=== PATIENT | female | born 1930 | race Caucasian/White ===

== ENCOUNTER 2017-04-13 12:24 | Outpatient (CLI) | payer MEDICARE, OTHER ==
--- NOTE | 2017-04-13 13:36 | RAD ---
PA AND LATERAL VIEWS CHEST: HISTORY: Preop evaluation. FINDINGS: The heart size is normal. There is elevation of the right hemidiaphragm. The lungs are well expande d without focal areas of consolidation, pneumothorax, or pleural effusions. The aorta is tortuous. There are postop changes of bilateral shoulder arthroplasties. IMPRESSION: No radiographic evidence of acute cardiopulmonary process. POS: OFF
[2017-04-13 13:53] LABS: #Eosinphils 0.2 thou/uL (0.0-0.7); #Lymphocytes 1.9 thou/uL (1.20-3.40); #Monocytes 0.5 thou/uL (0.11-0.59); #Neutrophils 4.6 thou/uL (1.40-6.50); %Basophils 0.6 % (0.0-1.0); %Eosinophils 2.8 % (0.0-10.0); %Lymphocytes 26.4 % (21.0-51.0); %Monocytes 6.8 % (0.0-10.0); %Neutrophils 63.4 % (42.0-75.0); Hemoglobin 14.1 g/dL (12.0-16.0); Mean Corpuscular HGB CONC 33.3 g/dL (32.0-36.0); Mean Corpuscular Hemoglobin 30.2 pg (27.0-31.0); Mean Corpuscular Volume 90.7 fl (81.0-99.0); Mean Platelet Volume 8.8 fL (7.4-10.4); Platelet Count 207 thou/uL (130-400); RBC Distribution Width 11.7 % (11.5-14.5); Red Blood Cell (RBC) Count 4.68 mill/uL (4.20-5.40); White Blood Cell (WBC) Count 7.3 thou/uL (4.8-10.8)
[2017-04-13 13:58] LABS: Prothrombin Time 13.2 SEC (12.0-14.7)
[2017-04-13 14:18] LABS: Anion Gap 12 mmol/L (10-20); BUN (Urea Nitrogen) 29 mg/dL (9.8-20.1); Calc. Creatinine Clearance 0 mL/min (70-130); Calcium 9.6 mg/dL (7.8-10.44); Carbon Dioxide 27 mmol/L (23-31); Chloride 98 mmol/L (98-107); Estimated GFR-MDRD 52; Glucose 98 mg/dL (83-110); Potassium 3.3 mmol/L (3.5-5.1); Sodium 134 mmol/L (136-145)
--- NOTE | 2017-04-15 17:36 | EKG ---
Test Reason : Blood Pressure : / mmHG Vent. Rate : 062 BPM Atrial Rate : 062 BPM P-R Int : 166 ms QRS Dur : 092 ms QT Int : 436 ms P-R-T Axes : -03 -15 016 degrees QTc Int : 442 ms Normal sinus rhythm Voltage criteria for left ventricular hypertrophy Abnormal ECG When compared with ECG of 02-MAR-2016 09:17, No significant change was found Confirmed by DR. Sean ALVAREZ ([id number]) on 04/15/2017 5:36:19 PM Referred By: MIKKI Confirmed By:DR. Sean ALVAREZ
== END 2017-04-13 12:25 | disposition home or self-care (01) ==
LOC: LABBT 12:24
PROVIDERS: ATTEND Orthopaedic Surgery
DX: Z01.818 Encounter for other preprocedural examination (principal); M17.12 Unilateral primary osteoarthritis, left knee
CPT/HCPCS: 71046; 80048; 85025; 85610; 87081; 93005; 93010

== ENCOUNTER 2017-04-21 09:42 | Outpatient (CLI) | payer MEDICARE, OTHER ==
[2017-04-21 12:32] LABS: Bilirubin Negative (Negative); Blood, Urine Trace (Negative); Clarity CLOUDY (Clear); Glucose, Urine (Dipstick) Negative (Negative); Leukocyte Moderate (Negative); Nitrite Positive (Negative); Protein, Urine (Dipstick) Negative (Neg-Trace); Urobilinogen 0.2 mg/dL (0.2-1.0)
[2017-04-21 12:43] LABS: Bacteria/HPF 4+ HPF (None Seen); Hyaline Casts/LPF 0-3 HYALINE CAST LPF (0-3 Hyaline); WBC/HPF 21-50 HPF (0-3)
== END 2017-04-21 09:43 | disposition home or self-care (01) ==
LOC: LABBT 09:42
PROVIDERS: ATTEND Orthopaedic Surgery
DX: Z01.812 Encounter for preprocedural laboratory examination (principal); M17.12 Unilateral primary osteoarthritis, left knee
CPT/HCPCS: 81001; 86850; 86900; 86901

== ENCOUNTER 2017-04-27 07:43 | Day surgery (SDC) | payer MEDICARE, OTHER ==
[2017-04-13 12:47] VITALS: BMI 27.4
[2017-04-27] MEDS ORDERED: Levofloxacin 500 mg/D5W 100 ml Premix Bag ONE (08:39)
[2017-04-27] MEDS ORDERED: Zolpidem Tartrate 5 MG TAB PO PRN ×2 (08:59→10:16)
[2017-04-27] MEDS ORDERED: Ondansetron HCl/PF 4 MG/2 ML Vial IVP PRN ×3 (08:59→12:32)
[2017-04-27] MEDS ORDERED: Promethazine HCl 25 MG/ML VIAL IM PRN ×3 (08:59→12:32)
[2017-04-27] MEDS ORDERED: HYDROcodone/Acetaminophen 10/325 mg Tablet PO PRN ×4 (08:59→10:16)
[2017-04-27] MEDS ORDERED: Fentanyl 100 MCG/2 ML VIAL SLOW IVP PRN ×2 (08:59)
[2017-04-27] MEDS ORDERED: diphenhydrAMINE 25 MG CAP PO PRN (08:59)
[2017-04-27] MEDS ORDERED: Acetaminophen 325 MG TAB PO PRN (08:59)
[2017-04-27] MEDS ORDERED: Tranexamic Acid 1,000 MG in Sodium Chloride 0.9% 100 ML IVPB SCH (09:00)
[2017-04-27] MEDS ORDERED: Lorazepam 0.5 MG TAB PO PRN (09:01)
[2017-04-27] MEDS ORDERED: Midazolam HCl 2 mg/2 ml Vial ONE (09:01)
[2017-04-27] MEDS ORDERED: Morphine 4 MG/ML VIAL ONE (09:01)
[2017-04-27] MEDS ORDERED: traMADol HCl 50 MG TAB PO PRN ×2 (10:16)
[2017-04-27] MEDS ORDERED: Fentanyl 100 MCG/2 ML VIAL IV PRN (10:17)
[2017-04-27] MEDS ORDERED: Promethazine HCl 25 MG/ML VIAL SLOW IVP PRN (12:32)
[2017-04-27] MEDS ORDERED: Fentanyl 250 MCG/5 ML VIAL ONE (12:39)
--- NOTE | 2017-04-27 12:53 | OP ---
DATE OF PROCEDURE: 04/27/2017 PREOPERATIVE DIAGNOSIS: Degenerative joint disease, left knee. POSTOPERATIVE DIAGNOSIS: Degenerative joint disease, left knee. PROCEDURE: Left total knee arthroplasty using [place] Triathlon 4 femur, 4 tibia, 11 mm CSX3 polyeth ylene, and A29 patella. SURGEON: Dr. Jovan Degroot ADMINISTRATOR OF HOME HEALTH: AFSANEH Garrido. PROCEDURE IN DETAIL: After informed consent was obtained in the preoperative holding area. The marquita ent was taken to the operative suite where general anesthesia was induced. Once adequate level of ge neral anesthesia was obtained, the patient was positioned and a well-padded tourniquet was placed trisha und the left proximal thigh. The left lower extremity was then prepped and draped in the usual steri le fashion. Prior to exsanguination, a time out was called and all members of the surgical team agre ed upon site, surgeon, and patient. The extremity was then exsanguinated and the tourniquet was rais ed. A midline longitudinal incision was then made directly over the patella extending two fingerbrea dths above the superior pole of the patella and two fingerbreadths inferior to the inferior patellar pole of the patella. Deeper subcutaneous layers were dissected sharply and local bleeding was contro lled with Bovie electrocautery. A quad tendon longitudinal split was then made sharply and a median parapatellar arthrotomy was carried out both sharp and with Bovie electrocautery, carried down to one fingerbreadth medial to the tibial tubercle. The knee was then placed into flexion and the patella was everted nicely, and a copious fat pad ectomy was performed allowing for greater exposure of the t ibia. The computer-assisted distal femoral fiducial was then placed and pinned firmly, and the dista l femoral cutting guide was pinned firmly into place. The oscillating saw was then used to remove th e appropriate amount of bone. The 4-in-1 cutting block was then placed on the distal femur and the o scillating saw was used to remove the appropriate amount of bone off of the anterior, posterior, and chamfer cuts. After completion of bone cuts, the anterior cruciate ligament was resected sharply and the posterior cruciate ligament retractor was placed and the tibia was subluxed for better exposure. Partial meniscectomies were carried out, and the tibial computer-assisted fiducial was pinned, and the cutting guide was placed. Oscillating saw was then used to remove the bone with Hohmann retracto rs used to take care and protect the collateral ligaments. After the tibial resection was performed, a laminar framing mechanic was placed in between the freshened bone cuts. The knee placed at 90 degrees and further bilateral meniscectomies were carried out, and the curved osteotome and curettage was used t o remove any excess bone spurs in the posterior compartment. Exparel was then injected into the post erior capsule, ramona-articular synovia, pre-patella synovia, and musculature surrounding the capsule. The trial femoral component, tibial baseplate were placed with the appropriate polyethylene trial in sert with an appropriate polyethylene spacer and patellar button. The knee was taken through full ra nge of motion with flexion and extension from 0-90 degrees and patellar broach squarely in the trochl ea without any squinting or subluxation noted. The knee was also stable to varus and valgus stressin g at 0, 15, 45, and 90 degrees of flexion. The drawer was negative. All trial components were then r emoved and the keel punch was used to provide the appropriate defect in the tibia with a mallet. The freshened bone cuts were copiously irrigated with pulsatile lavage of about 1-1/2 liters to remove a ll excess debris. The freshened bone cuts were then dried and with suction and lap sponge. The knee was placed in flexion and retractors were placed to provide access to all bone cuts. Tobramycin imp regnated methyl methacrylate cement was then placed on the freshened bone cuts and implants which wer e malleted firmly into place. Curettage and [place] elevators were used to remove any excess bone ceme nt. The knee was placed into full extension and the patellar button was placed under compression, an d the cement was allowed to cure. Once completed, the components were again taken through full range of motion and copious irrigation of the knee was carried out with another liter of normal saline. A ll components were inspected fully with full range of motion and varus and valgus stressing. There wa s no laxity noted and full extension was observed clinically. Primary closure was accomplished with #2 interrupted Vicryl stitch of the arthrotomy defect. This was oversewn with a #2 running Quill bar bed stitch. The gravitational platelet system was then injected into the arthrotomy prior to closure . The subcutaneous layer was then closed with a running 0 barbed Monocryl stitch and skin closure ac complished with a running subcuticular 3-0 Monocryl barbed Quill stitch and augmented with cement on the skin. Tourniquet was lowered. Good spontaneous return of distal pulses was noted clinically and a sterile dressing was applied to the incision. The procedure was terminated without any complicati ons. The patient was awakened in the operative suite and the tourniquet was removed, and the patient was taken to the recovery room in stable condition.
--- NOTE | 2017-04-27 13:11 | RAD ---
TWO VIEWS LEFT KNEE: Date: 04-27-17 History: Evaluate knee following arthroplasty. FINDINGS: There is post-operative change of the patella posteriorly. There is a tibial and femoral component pr esent with no evidence for hardware failure, fracture, or dislocation. Post-operative gas is seen in the left knee joint. IMPRESSION: Status post left total knee arthroplasty. No acute fracture or dislocation. POS: [facility]
[2017-04-27] MEDS ORDERED: Bupivacaine HCl 0.5%/Epinephrine 1:200,000/PF 30 ml Vial ONE (14:33)
[2017-04-27] MEDS ORDERED: Bupivacaine/Epinephrine 0.25% 30 ML VIAL ONE (14:33)
[2017-04-27] MEDS ORDERED: Ondansetron HCl/PF 4 MG/2 ML Vial ONE (15:00)
[2017-04-27] MEDS ORDERED: Dexamethasone 20 MG/5 ML VIAL ONE (15:00)
[2017-04-27] MEDS ORDERED: PROPOFOL 200 MG/20 ML VIAL ONE (15:00)
[2017-04-27] MEDS ORDERED: PHENYLEPHRINE-NS 100 MCG/ML 10 ML SYRINGE ONE (15:00)
[2017-04-27] MEDS: Aspirin 81 mg Enteric Coated Tablet PO SCH ×2 (15:07→20:14)
[2017-04-27] MEDS: Ferrous Gluconate 324 MG TAB PO SCH ×2 (15:08→20:15)
[2017-04-27] MEDS: Ketorolac Tromethamine 30 MG/ML VIAL IVP SCH ×3 (15:08→23:41)
[2017-04-27] MEDS: Multivitamin W/ Minerals 1 TAB PO SCH (15:08)
[2017-04-27] MEDS: Ketorolac Tromethamine 30 MG/ML VIAL IM SCH ×2 (15:09→20:19)
[2017-04-27] MEDS: Senokot S 8.6-50 MG TAB PO SCH ×2 (15:09→20:14)
[2017-04-27] MEDS: Dextrose 5 %-0.45 % NaCl 1,000 ML IV SCH ×2 (15:09→20:18)
[2017-04-27] MEDS ORDERED: hydrALAZINE 25 MG TAB PO PRN (20:03)
[2017-04-27] MEDS ORDERED: Vancomycin HCl 1.5 GM in Sodium Chloride 0.9% 250 ML 300 ML IVPB SCH (21:00)
--- NOTE | 2017-04-27 21:32 | CON ---
DATE OF CONSULTATION: 04/27/2017 ATTENDING PHYSICIAN: Dr. Jovan Degroot. PRIMARY CARE PHYSICIAN: Dr. Yvonne Velasquez. REASON FOR CONSULTATION: Aid in medical management. HISTORY OF PRESENT ILLNESS: Ms. Rpap is a very pleasant 86-year-old female that has a history of h ypertension and mild anxiety. The patient also has a history of severe osteoarthritis in the left kn ee. The patient had failed outpatient and conservative management of the knee pain and has elected t o have a left total knee replacement. The patient has undergone surgery and is currently postop and has no complaints. She says that she had a little bit of a headache this morning, but she attributes that to not having her usual cup of coffee. Otherwise, no complaints. She denies any chest pain, n o shortness of breath, no PND, no orthopnea, no nausea, no vomiting, etc. PAST MEDICAL HISTORY: Significant for hypertension as well as anxiety. PAST SURGICAL HISTORY: She has had a tonsillectomy in 1939, hysterectomy in 1988, partial colon rese ction secondary to abscess, shoulder surgery, appendectomy, back surgery as well as a colonoscopy. ALLERGIES: PENICILLIN, which causes her throat close off. FAMILY HISTORY: Significant for peptic ulcer disease in her father, liver cancer, and inflammatory b owel syndrome and her mother, rectal cancer in her son. SOCIAL HISTORY: She is . She has been for 8 years. She lives alone. She does not s moke. She rarely drinks. Denies any drug use. MEDICATIONS: Include atenolol 25 mg daily, hydrochlorothiazide 25 mg a day, and lorazepam 0.5 mg 1-2 tablets at bedtime. PHYSICAL EXAMINATION: GENERAL: She is alert and oriented. She appears to be in no acute distress. VITAL SIGNS: The blood pressure was 103/65, heart rate 73, respiratory rate of 18, temperature is 98 .2. HEENT: Her pupils are equal, round, and reactive. Extraocular muscles are intact. Sclerae anicteri c. Throat: No erythema, no exudates. NECK: No adenopathy, no bruits. LUNGS: Clear to auscultation. There is no wheezing, no rales. CARDIOVASCULAR: She has a normal S1, S2. I did not appreciate an S3 or S4. No murmurs, clicks, or rubs. ABDOMEN: Soft, it is nontender, nondistended. Positive for bowel sounds. No rebound, no guarding. EXTREMITIES: There is no clubbing, cyanosis, no edema. NEUROLOGICALLY: The exam is nonfocal. LABORATORY DATA: Lab results were done on 04/13/2017 and these were reviewed. ASSESSMENT AND PLAN: This is a pleasant 86-year-old female that is being admitted for an elective le ft total knee replacement. She has currently undergone surgery and has no significant complaints. S he also has a history of hypertension and her blood pressure is well controlled. With regard to bloo d pressure, I would restart her hydrochlorothiazide as well as her atenolol and this is set to be res tarted tomorrow. We will also add hydralazine only as needed. If she is hospitalized more than a fe w days, then likely should check a chemistry panel to follow up on her potassium given the diuretic. For the left total knee replacement, postop management will be deferred with regard to the knee repla cement to Orthopedic surgery. Thank you for allowing us to participate in the care of this very nice lady and we will be happy to aurelia lyons along with you.
[2017-04-28] MEDS: Bupivacaine 0.5% 50 ML in Sodium Chloride 0.9% 50 ML NERVE BLCK SCH ×3 (01:31→17:06)
[2017-04-28 04:22] LABS: Hemoglobin 11.5 g/dL (12.0-16.0); Mean Corpuscular HGB CONC 33.4 g/dL (32.0-36.0); Mean Corpuscular Hemoglobin 30.4 pg (27.0-31.0); Mean Platelet Volume 9.3 fL (7.4-10.4); Platelet Count 165 thou/uL (130-400); RBC Distribution Width 11.7 % (11.5-14.5); Red Blood Cell (RBC) Count 3.78 mill/uL (4.20-5.40); White Blood Cell (WBC) Count 11.9 thou/uL (4.8-10.8)
[2017-04-28] MEDS: Dextrose 5 %-0.45 % NaCl 1,000 ML IV SCH ×2 (05:47→18:18)
[2017-04-28] MEDS: Ketorolac Tromethamine 30 MG/ML VIAL IM SCH ×3 (05:47→20:44)
[2017-04-28] MEDS: Ketorolac Tromethamine 30 MG/ML VIAL IVP SCH ×4 (05:48→21:23)
[2017-04-28] MEDS: Aspirin 81 mg Enteric Coated Tablet PO SCH ×2 (08:14→20:45)
[2017-04-28] MEDS: Hydrochlorothiazide 25 MG TAB PO SCH (08:14)
[2017-04-28] MEDS: Multivitamin W/ Minerals 1 TAB PO SCH (08:14)
[2017-04-28] MEDS: Ferrous Gluconate 324 MG TAB PO SCH ×2 (08:15→21:18)
[2017-04-28] MEDS: Atenolol 25 MG TAB PO SCH (08:15)
[2017-04-28] MEDS: Senokot S 8.6-50 MG TAB PO SCH ×2 (08:15→21:18)
[2017-04-28] MEDS: traMADol HCl 50 MG TAB PO PRN ×2 (08:42→14:29)
--- NOTE | 2017-04-28 14:19 | PRG ---
DATE OF SERVICE: 04/28/2017 SUBJECTIVE: Danita is an 86-year-old white female postop day #1 left total knee arthroplasty. She is relatively comfortable, doing well. Her block seemed to be working effectively. Also, of note, s he has a preexisting foot drop on the left side which was caused from a stroke some years ago. OBJECTIVE: VITAL SIGNS: Temperature 97.7, pulse 66, blood pressure is 122/62, respiratory rate 20, 94% on room air. GENERAL: She is alert and oriented to person, place, time, and situation. Grossly nonfocal appropri ate with examiner and appears to converse comfortably. EXTREMITIES: Left foot drop is present and chronic. Incision is clean and closed, no erythema, no s trike through. LABORATORY DATA: Hemoglobin and hematocrit are 11.5 and 34.3. ASSESSMENT: 1. An 86-year-old white female postop day #1 left total knee arthroplasty, doing relatively well. P ain controlled. 2. Mild postoperative hemorrhagic anemia. PLAN: Continue current management. Probable discharge tomorrow.
--- NOTE | 2017-04-28 16:40 | PDOC.PN ---
- Subjective Encounter Start Date: 04/28/17 Encounter Start Time: 16:39 Ms. Rapp was seen in follow-up,she was having some knee pain, but it is better with the addition of Ultram - Objective MAR Reviewed: Yes Vital Signs & Weight: Vital Signs (12 hours) Temp Pulse Resp BP BP Pulse Ox 04/28/17 15:43 97.5 F L 62 20 126/72 96 04/28/17 13:16 97.7 F 66 20 132/61 94 L 04/28/17 08:15 67 122/62 04/28/17 08:00 98.6 F 69 16 93 L 04/28/17 07:28 98.6 F 69 16 122/62 93 L Weight Admit Weight 165 lb Weight 165 lb I&O: 04/27/17 04/28/17 04/29/17 06:59 06:59 06:59 Intake Total 500 Balance 500 Result Diagrams: 04/28/17 03:15 Phys Exam - Physical Examination HEENT: PERRLA Respiratory: no wheezing, no rales, no rhonchi, clear to auscultation bilateral Cardiovascular: RRR, no significant murmur Gastrointestinal: soft, non-tender, positive bowel sounds Musculoskeletal: no edema Dx/Plan (1) Hypertension Code(s): I10 - ESSENTIAL (PRIMARY) HYPERTENSION Status: Chronic (2) Status post total left knee replacement Code(s): Z96.652 - PRESENCE OF LEFT ARTIFICIAL KNEE JOINT Status: Acute - Plan * HTN- blood pressure is well controlled * OA of the left knee- she is s/p Left TKR- clinically stable- continue PT/OT.
[2017-04-29] MEDS: Dextrose 5 %-0.45 % NaCl 1,000 ML IV SCH ×2 (02:05→15:39)
[2017-04-29 03:50] VITALS: TEMP 98.1
[2017-04-29 05:10] LABS: Hemoglobin 10.9 g/dL (12.0-16.0); Mean Corpuscular HGB CONC 33.1 g/dL (32.0-36.0); Mean Corpuscular Hemoglobin 30.2 pg (27.0-31.0); Mean Corpuscular Volume 91.2 fl (81.0-99.0); Mean Platelet Volume 9.5 fL (7.4-10.4); Platelet Count 115 thou/uL (130-400); RBC Distribution Width 11.6 % (11.5-14.5); Red Blood Cell (RBC) Count 3.61 mill/uL (4.20-5.40); White Blood Cell (WBC) Count 7.4 thou/uL (4.8-10.8)
[2017-04-29] MEDS: Ketorolac Tromethamine 30 MG/ML VIAL IVP SCH (05:30)
[2017-04-29] MEDS: traMADol HCl 50 MG TAB PO PRN (05:36)
[2017-04-29] MEDS: Ketorolac Tromethamine 30 MG/ML VIAL IM SCH ×2 (06:19→15:40)
[2017-04-29] MEDS: Ferrous Gluconate 324 MG TAB PO SCH (08:25)
[2017-04-29] MEDS: Senokot S 8.6-50 MG TAB PO SCH (08:26)
[2017-04-29] MEDS: Hydrochlorothiazide 25 MG TAB PO SCH (08:26)
[2017-04-29] MEDS: Atenolol 25 MG TAB PO SCH (08:26)
[2017-04-29] MEDS: Multivitamin W/ Minerals 1 TAB PO SCH (08:26)
[2017-04-29] MEDS: Aspirin 81 mg Enteric Coated Tablet PO SCH (08:26)
[2017-04-29 08:39] VITALS: BP 115/66
== END 2017-04-29 13:00 | disposition home or self-care (01) ==
LOC: SDC 07:43 → SJJU 15:37 → SDC 04-29 13:00
PROVIDERS: ATTEND Orthopaedic Surgery
PROC: 0SRD0J9 Replacement of Left Knee Joint with Synthetic Substitute, Cemented, Open Approach (ICD-10-PCS; principal; 2017-04-27)
DX: M17.12 Unilateral primary osteoarthritis, left knee (principal); I10 Essential (primary) hypertension; D50.0 Iron deficiency anemia secondary to blood loss (chronic); F41.9 Anxiety disorder, unspecified; Z88.0 Allergy status to penicillin; Z88.8 Allergy status to other drugs, medicaments and biological substances; Z79.899 Other long term (current) drug therapy; Z98.890 Other specified postprocedural states
CPT/HCPCS: 27447; 73560; 85027; 96374; 97110 ×2; 97116 ×3; 97139 ×2; 97150; 97530; C1713; C1776; G8978; G8979; 36415; J0670; J1100; J1885; J1956; J2250; J2270; J2405; J2704; J3010; J3370; J3490; J7050

== ENCOUNTER 2017-10-13 10:44 | Outpatient (CLI) | payer MEDICARE, OTHER ==
--- NOTE | 2017-10-13 13:29 | MRI ---
LEFT KNEE MRI WITHOUT IV CONTRAST: Date: 10/13/17 HISTORY: 86-year-old female with history of acute pain left knee. Status post total left knee replacement in M arch 2018. FINDINGS: There is very severe metallic susceptibility artifact from the dense metal associated with total knee replacement. This extensive metal artifact also results in lack of fat saturation. There is no evide nce for abnormal fluid collection. The cruciate ligaments are very poorly defined. Collateral ligament complexes additionally are very p oorly defined. IMPRESSION: Very severely limited study because of the very dense metal susceptibility artifact from total knee r eplacement. No significant abnormal fluid collection or mass. POS: [facility]
== END 2017-10-13 10:45 | disposition home or self-care (01) ==
LOC: SCSMRI 10:44
PROVIDERS: ATTEND Orthopaedic Surgery
DX: M25.562 Pain in left knee (principal); Z96.652 Presence of left artificial knee joint

== ENCOUNTER 2018-11-09 10:49 | Outpatient (CLI) | payer MEDICARE, OTHER ==
[2018-11-09 15:22] LABS: #Lymphocytes 2.1 thou/uL (1.20-3.40); #Monocytes 0.8 thou/uL (0.11-0.59); #Neutrophils 9.4 thou/uL (1.40-6.50); %Basophils 0.3 % (0.0-1.0); %Eosinophils 0.2 % (0.0-10.0); %Lymphocytes 16.9 % (21.0-51.0); %Monocytes 6.2 % (0.0-10.0); %Neutrophils 76.3 % (42.0-75.0); Hemoglobin 14.8 g/dL (12.0-16.0); Mean Corpuscular HGB CONC 33.6 g/dL (32.0-36.0); Mean Corpuscular Hemoglobin 30.6 pg (27.0-31.0); Mean Platelet Volume 9.1 fL (7.4-10.4); Platelet Count 248 thou/uL (130-400); RBC Distribution Width 12.2 % (11.5-14.5); Red Blood Cell (RBC) Count 4.84 mill/uL (4.20-5.40); White Blood Cell (WBC) Count 12.3 thou/uL (4.8-10.8)
[2018-11-09 15:27] LABS: Prothrombin Time 12.9 SEC (12.0-14.7)
[2018-11-09 16:02] LABS: Bacteria/HPF 2+ HPF (None Seen); Bilirubin Negative (Negative); Blood, Urine Trace (Negative); Clarity Clear (Clear); Glucose, Urine (Dipstick) Normal (Negative); Leukocyte Negative Leu/uL (Negative); Nitrite 2+ (Negative); Protein, Urine (Dipstick) Negative (Neg-Trace); RBC/HPF 0-3 HPF (0-3); Urobilinogen Normal mg/dL (Less than 2); WBC/HPF 0-3 HPF (0-3)
[2018-11-09 16:03] LABS: Anion Gap 13 mmol/L (10-20); BUN (Urea Nitrogen) 30 mg/dL (9.8-20.1); Calc. Creatinine Clearance 0 mL/min (70-130); Calcium 9.3 mg/dL (7.8-10.44); Chloride 94 mmol/L (98-107); Estimated GFR-MDRD 51; Glucose 88 mg/dL (83-110); Potassium 3.4 mmol/L (3.5-5.1); Sodium 130 mmol/L (136-145)
[2018-11-09 16:20] LABS: Carbon Dioxide 25 mmol/L (23-31)
--- NOTE | 2018-11-10 20:15 | EKG ---
Test Reason : Blood Pressure : / mmHG Vent. Rate : 083 BPM Atrial Rate : 083 BPM P-R Int : 150 ms QRS Dur : 090 ms QT Int : 390 ms P-R-T Axes : 054 006 071 degrees QTc Int : 458 ms Normal sinus rhythm Cannot rule out Anterior infarct , age undetermined Abnormal ECG When compared with ECG of 13-APR-2017 13:12, No significant change was found Confirmed by JOSE GRIFFIN, . SPayton ([id number]) on 11/10/2018 8:14:55 PM Referred By: MIKKI Confirmed By:DR. Gordon GARCIA MD
== END 2018-11-09 10:50 | disposition home or self-care (01) ==
LOC: LABBT 10:49
PROVIDERS: ATTEND Orthopaedic Surgery
DX: Z01.818 Encounter for other preprocedural examination (principal); S83.522A Sprain of posterior cruciate ligament of left knee, initial encounter
CPT/HCPCS: 80048; 81001; 85025; 85610; 87081; 93005; 93010

== ENCOUNTER 2018-11-09 14:30 | Inpatient (IN) | payer MEDICARE, OTHER ==
[2018-11-09 14:05] VITALS: BMI 27.4
[2018-11-18] MEDS ORDERED: Levofloxacin 500 mg/D5W 100 ml Premix Bag ONE (06:54)
[2018-11-18] MEDS ORDERED: Tranexamic Acid 1,000 MG/10 ML VIAL ONE (06:54)
[2018-11-18] MEDS ORDERED: Sodium Chloride 0.9% 100 ML ONE (06:55)
[2018-11-18] MEDS ORDERED: Fentanyl 100 MCG/2 ML VIAL ONE ×3 (08:26→11:33)
[2018-11-18] MEDS ORDERED: Midazolam HCl 2 mg/2 ml Vial ONE (08:26)
[2018-11-18] MEDS ORDERED: Fentanyl 100 MCG/2 ML VIAL SLOW IVP PRN ×3 (08:28→11:20)
[2018-11-18] MEDS ORDERED: Ondansetron PF 4 MG/2 ML Vial IVP PRN ×2 (08:28→11:19)
[2018-11-18] MEDS ORDERED: HYDROcodone/Acetaminophen 10/325 mg Tablet PO PRN ×3 (08:28→11:19)
[2018-11-18] MEDS ORDERED: Zolpidem Tartrate 5 MG TAB PO PRN ×2 (08:28→11:19)
[2018-11-18] MEDS ORDERED: Acetaminophen 325 MG TAB PO PRN (08:28)
[2018-11-18] MEDS ORDERED: Promethazine HCl 25 MG/ML VIAL IM PRN ×2 (08:28→11:19)
[2018-11-18] MEDS ORDERED: diphenhydrAMINE 25 MG CAP PO PRN (08:28)
[2018-11-18] MEDS ORDERED: Lorazepam 1 MG TAB PO PRN (08:30)
--- NOTE | 2018-11-18 11:10 | RAD ---
XR Knee Lt 2 View History: Total knee postop Comparison: Knee radiograph 2018 Findings: Satisfactory appearance left total knee arthroplasty with new long femoral stem. Expected p ostoperative gas and edema. Tibial component is intact. Impression: Satisfactory postoperative appearance.
[2018-11-18] MEDS: Ketorolac Tromethamine 30 MG/ML VIAL IVP SCH ×3 (13:39→23:36)
[2018-11-18] MEDS: Atenolol 25 MG TAB PO SCH (13:39)
[2018-11-18] MEDS: Hydrochlorothiazide 25 MG TAB PO SCH (13:39)
[2018-11-18] MEDS: Sodium Chloride 0.9% 1,000 ML IV SCH ×2 (13:39→17:22)
--- NOTE | 2018-11-18 13:42 | OP ---
DATE OF PROCEDURE: 11/18/2018 PREOPERATIVE DIAGNOSIS: Failed left total knee. POSTOPERATIVE DIAGNOSIS: Failed left total knee. PROCEDURE PERFORMED: Left revision total knee arthroplasty using a [place] triathlon size 11 tibia, size 4 femur with a 15 mm buildup medially and a 10 mm buildup laterally on the distal end. No posterior augments. 18 mm x 100 stem was used. SOLAR PROJECT COORDINATION SPECIALIST: Samir Dickinson PA-C. BLOOD LOSS: Minimal. SPECIMENS: None. DRAINS: None. COMPLICATIONS: None. NARRATIVE REPORT: The patient was taken to the operating room, where general anesthesia was induced. Left leg was prepped and draped in sterile fashion. After exsanguination, tourniquet was inflated to 300 mmHg. I made a longitudinal incision. Dissection was carried down through the joint capsule. Synovectomy was performed. The femur was exposed. The tibia was exposed. I removed the tibia with a curved osteotome. I removed the femur with an oscillating saw. I prepared the femur using the trial cutting guide. Flexion gap was snug at 11, however, had a build up the extension gap quite a bit and refusing the trial described above. Trials have given full stability in flexion and extension, full extension without hyperextension. Trials were removed and irrigation performed. I assembled the trials in the back table. Thorough irrigation and hemostasis were obtained. I then cemented the permanent implants into place without difficulty. Irrigation was performed. The capsule was repaired with #2 Vicryl and #2 Quill. Subcu closed with 0 Quill. Skin was closed with 2-0 Quill, and sterile glue was applied. There were no complications. Job ID: [id number]
[2018-11-18] MEDS ORDERED: hydrALAZINE 20 MG/ML VIAL SLOW IVP PRN (17:17)
--- NOTE | 2018-11-18 17:43 | CON ---
DATE OF CONSULTATION: 11/18/2018 PRIMARY CARE PROVIDER: Yvonne Velasquez MD CHIEF COMPLAINT: Management of medical comorbidities. HISTORY OF PRESENT ILLNESS: Ms. Rapp is a pleasant 88-year-old lady, who was seen at [facility] on November 18, 2018. She underwent left revision total knee arthroplasty earlier today. Hospitalist Service has been consulted for management of medical comorbidities. Ms. Rapp denies any chest pain or shortness of breath. She denies any fevers or chills. She denies any nausea or vomiting. She reports that pain at the surgical site is controlled with medications. REVIEW OF SYSTEMS: All systems were reviewed and found to be negative except for the pertinent positives mentioned above. PAST MEDICAL HISTORY: Hypertension and anxiety. PAST SURGICAL HISTORY: Tonsillectomy, hysterectomy, partial colon resection secondary to abscess, shoulder surgery, appendectomy, back surgery, and colonoscopy. ALLERGIES: PENICILLIN. FAMILY HISTORY: Peptic ulcer disease in her father. Liver cancer and inflammatory bowel syndrome in her mother. Rectal cancer in her son. SOCIAL HISTORY: The patient denies tobacco use, alcohol use, or recreational drug use. HOME MEDICATIONS: Aspirin 81 mg daily, atenolol 25 mg daily, hydrochlorothiazide 25 mg daily, and lorazepam p.r.n. PHYSICAL EXAMINATION: GENERAL: on examination, Ms. Rapp is awake and alert, not in acute distress. VITAL SIGNS: She is afebrile. Blood pressure is 104/64, pulse 80, respiratory rate 14, and oxygen saturation 96% on room air. EYES: No scleral icterus. No conjunctival pallor. ENT: Moist mucosal membranes. No oropharyngeal erythema or exudates. NECK: Supple and nontender. Trachea is midline. RESPIRATORY: Accessory muscles of breathing are not active. Chest wall movements are symmetric bilaterally. Lungs are clear to auscultation without wheeze, rhonchi, or crepitations. CARDIOVASCULAR: S1 and S2 are heard, regular. Peripheral pulses palpable. No carotid bruit. No pericardial rub. ABDOMEN: Soft and nontender. Bowel sounds heard. NEUROLOGIC: Cranial nerves 2 through 12 are intact. MUSCULOSKELETAL: Status post left knee surgery. SKIN: No rashes or subcutaneous nodules. LYMPHATIC: No cervical lymphadenopathy. PSYCHIATRIC: Normal mood. Normal affect. The patient is oriented to person, place, and time. LABORATORY DATA: Ms. Rapp' labs and investigations were reviewed. On November 09, she had mild leukocytosis with 12,300 white cells, normal hemoglobin, and normal platelet count. Sodium was 130, potassium 3.4, and creatinine 1.02. ASSESSMENT AND PLAN: Ms. Rapp is a pleasant 88-year-old lady, who was seen at [facility] on November 18, 2018. Her problem list includes: 1. Hypertension: Resume atenolol during the perioperative period. Continue hydrochlorothiazide. Monitor vital signs and titrate antihypertensives as needed. 2. Electrolyte abnormalities: Check Chem-7 in the morning. 3. Arthritis: Status post left knee revision arthroplasty. Deep venous thrombosis prophylaxis and pain management per Orthopedic Surgery Service. Many thanks for allowing me to participate in your patient's care. Please feel free to contact me with any questions or concerns. LEVEL OF RISK: Moderate. LEVEL OF COMPLEXITY: Moderate. Job ID: [id number]
[2018-11-18] MEDS ORDERED: Vancomycin HCl 1.5 GM in Sodium Chloride 0.9% 250 ML 300 ML IVPB SCH (20:00)
[2018-11-18] MEDS: Aspirin 81 mg Enteric Coated Tablet PO SCH (20:48)
[2018-11-18] MEDS ORDERED: Aspirin 81 mg Enteric Coated Tablet PO SCH (21:00)
[2018-11-18] MEDS: traMADol HCl 50 MG TAB PO PRN (22:30)
[2018-11-19] MEDS: Sodium Chloride 0.9% 1,000 ML IV SCH ×2 (05:02→15:02)
[2018-11-19] MEDS: Ketorolac Tromethamine 30 MG/ML VIAL IVP SCH ×3 (05:02→18:51)
[2018-11-19 05:06] LABS: Hemoglobin 11.3 g/dL (12.0-16.0); Mean Corpuscular HGB CONC 33.1 g/dL (32.0-36.0); Mean Corpuscular Hemoglobin 30.7 pg (27.0-31.0); Mean Corpuscular Volume 92.8 fL (78.0-98.0); Mean Platelet Volume 8.9 fL (7.4-10.4); Platelet Count 157 thou/uL (130-400); RBC Distribution Width 12.1 % (11.5-14.5); Red Blood Cell (RBC) Count 3.67 mill/uL (4.20-5.40); White Blood Cell (WBC) Count 14.5 thou/uL (4.8-10.8)
[2018-11-19 05:26] LABS: Anion Gap 14 mmol/L (10-20); BUN (Urea Nitrogen) 28 mg/dL (9.8-20.1); Calc. Creatinine Clearance 46 mL/min (70-130); Calcium 8.5 mg/dL (7.8-10.44); Carbon Dioxide 27 mmol/L (23-31); Chloride 97 mmol/L (98-107); Estimated GFR-MDRD 51; Glucose 113 mg/dL (83-110); Potassium 3.7 mmol/L (3.5-5.1); Sodium 134 mmol/L (136-145)
[2018-11-19] MEDS: Atenolol 25 MG TAB PO SCH (08:51)
[2018-11-19] MEDS: Hydrochlorothiazide 25 MG TAB PO SCH (08:52)
[2018-11-19] MEDS: Multivitamin W/ Minerals 1 TAB PO SCH (08:52)
[2018-11-19] MEDS: Senokot S 8.6-50 MG TAB PO SCH ×2 (08:52→21:04)
[2018-11-19] MEDS: Aspirin 81 mg Enteric Coated Tablet PO SCH ×2 (08:53→21:04)
[2018-11-19] MEDS: Ferrous Gluconate 324 MG TAB PO SCH ×2 (08:55→21:04)
[2018-11-19] MEDS ORDERED: FLU VACC TS2019-20(65YR UP)/PF 180 MCG/0.5 ML SYRINGE IM ONE (09:00)
[2018-11-19] MEDS: Ropivacaine HCl/PF 250 ML in Premix Bag 1 BAG NERVE BLCK SCH (12:52)
--- NOTE | 2018-11-19 13:15 | PRG ---
DATE OF SERVICE: 11/19/2018 SUBJECTIVE: Danita is an 88-year-old female, she is postop day 1 from a left total knee arthroplasty revision. She is doing very well. She is comfortable and essentially has no complaints. OBJECTIVE: VITAL SIGNS: Temperature 97.9, pulse 61, respiratory rate 16 and unlabored, blood pressure is 124/71. GENERAL: She is alert and oriented to person, place, time, and situation. Responsive and appropriate with examiner. Grossly nonfocal. LABORATORY DATA: Hemoglobin and hematocrit are 11.3 and 34.1. IMPRESSION: An 88-year-old female, postop day 1, left total knee arthroplasty revision, doing well. PLAN: Continue current care. Probable discharge home Wednesday. Job ID: [id number]
--- NOTE | 2018-11-19 14:02 | PDOC.HOSPP ---
- Subjective Encounter Date: 11/19/18 Encounter Time: 12:00 Subjective: Pt seen for followup re; hyponatremia. feels well, no complaints. - Objective Vital Signs & Weight: Vital Signs (12 hours) Temp Pulse Resp BP Pulse Ox 11/19/18 12:14 97.9 F 61 16 124/71 95 11/19/18 07:19 97.9 F 64 18 125/69 99 11/19/18 04:00 97.9 F 64 18 135/52 L 98 Weight Weight 165 lb I&O: 11/18/18 11/19/18 11/20/18 06:59 06:59 06:59 Intake Total 800 1360 Output Total 300 1275 Balance 500 85 Result Diagrams: 11/19/18 04:22 11/19/18 04:22 Additional Labs: labs and MARs reviewed by ks Hospitalist ROS - Review of Systems Cardiovascular: denies: chest pain, palpitations, orthopnea, paroxysmal noc. dyspnea, edema, light headedness Gastrointestinal: denies: nausea, vomiting, abdominal pain, diarrhea, constipation, melena, hematochezia - Medication Medications: Active Medications Generic Name Dose Route Start Last Admin Trade Name Freq PRN Reason Stop Dose Admin Aspirin 81 mg 11/18/18 21:00 11/19/18 08:53 Ecotrin PO 81 mg BID DORA Administration Atenolol 25 mg 11/18/18 09:00 11/19/18 08:51 Tenormin PO 25 mg QAM DORA Administration Ferrous Gluconate 324 mg 11/19/18 09:00 11/19/18 08:55 Fergon PO Not Given BID DORA Hydrochlorothiazide 25 mg 11/18/18 09:00 11/19/18 08:52 Hydrochlorothiazide PO 25 mg QAM DORA Administration Sodium Chloride 1,000 mls @ 100 mls/hr 11/18/18 08:30 11/19/18 05:02 Normal Saline 0.9% IV Not Given .Q10H DORA Ropivacaine 250 ml/ Device 250 mls @ 10 mls/hr 11/18/18 11:19 11/19/18 12:52 NERVE BLCK 250 mls INF DORA Administration Iron/Minerals/Multivitamins 1 tab 11/19/18 09:00 11/19/18 08:52 Theragran M PO 1 tab DAILY DORA Administration Ketorolac Tromethamine 15 mg 11/18/18 12:00 11/19/18 12:39 Toradol IVP 11/20/18 06:01 15 mg Q6HR DORA Administration Senna/Docusate Sodium 2 tab 11/19/18 09:00 11/19/18 08:52 Senokot S PO 2 tab BID DORA Administration Tramadol HCl 100 mg 11/18/18 11:19 11/18/18 22:30 Ultram PO 100 mg Q6H PRN Administration Moderate Pain 4-6 - Exam General Appearance: NAD Eye: anicteric sclera ENT: moist mucosa Neck: supple Heart: RRR Respiratory: CTAB Gastrointestinal: soft, non-tender Psychiatric: normal affect, normal behavior Hosp A/P (1) Hyponatremia Code(s): E87.1 - HYPO-OSMOLALITY AND HYPONATREMIA Status: Acute (2) Hypertension Code(s): I10 - ESSENTIAL (PRIMARY) HYPERTENSION Status: Chronic - Plan PT/OT, out of bed/ambulate Hyponatremia mild, likely asymptomatic. HTN controlled.
[2018-11-19] MEDS: traMADol HCl 50 MG TAB PO PRN (15:55)
[2018-11-19] MEDS: HYDROcodone/Acetaminophen 10/325 mg Tablet PO PRN (21:14)
[2018-11-20] MEDS: Sodium Chloride 0.9% 1,000 ML IV SCH ×3 (00:58→19:31)
[2018-11-20] MEDS: Ketorolac Tromethamine 30 MG/ML VIAL IVP SCH ×2 (00:58→05:26)
[2018-11-20] MEDS: HYDROcodone/Acetaminophen 10/325 mg Tablet PO PRN (03:25)
[2018-11-20] MEDS: traMADol HCl 50 MG TAB PO PRN ×3 (04:33→23:48)
[2018-11-20 06:30] LABS: Mean Corpuscular HGB CONC 33.9 g/dL (32.0-36.0); Mean Corpuscular Hemoglobin 31.3 pg (27.0-31.0); Mean Corpuscular Volume 92.2 fL (78.0-98.0); Platelet Count 119 thou/uL (130-400); RBC Distribution Width 12.2 % (11.5-14.5); Red Blood Cell (RBC) Count 3.84 mill/uL (4.20-5.40); White Blood Cell (WBC) Count 9.2 thou/uL (4.8-10.8)
[2018-11-20] MEDS: Senokot S 8.6-50 MG TAB PO SCH ×2 (09:27→20:11)
[2018-11-20] MEDS: Hydrochlorothiazide 25 MG TAB PO SCH ×2 (09:27→09:31)
[2018-11-20] MEDS: Atenolol 25 MG TAB PO SCH (09:27)
[2018-11-20] MEDS: Aspirin 81 mg Enteric Coated Tablet PO SCH ×2 (09:27→20:11)
[2018-11-20] MEDS: Multivitamin W/ Minerals 1 TAB PO SCH (09:27)
[2018-11-20] MEDS: Ferrous Gluconate 324 MG TAB PO SCH ×2 (09:28→20:11)
--- NOTE | 2018-11-20 11:32 | PRG ---
DATE OF SERVICE: 11/20/2018 SUBJECTIVE: Danita is an 88-year-old female postop day 2 from a revision left total knee arthroplasty. She is doing well, comfortable this morning. OBJECTIVE: VITAL SIGNS: Temperature 97.6, pulse 67, respiratory rate 18, blood pressure 107/62 GENERAL: She is alert and oriented to person, place, time, situation, responsive, appropriate and grossly nonfocal. LABORATORY DATA: Hemoglobin and hematocrit are 12 and 35. IMPRESSION: An 88-year-old female, postop day 2, revision left total knee arthroplasty. PLAN: Consult has been placed for now for a swing bed placement. We will recheck tomorrow. Job ID: [id number]
[2018-11-20] MEDS: Ropivacaine HCl/PF 250 ML in Premix Bag 1 BAG NERVE BLCK SCH (14:36)
--- NOTE | 2018-11-20 18:08 | PDOC.EVN ---
Event Note - Event Note Event Note: Pt seen in followup. Denies any complaints. Feels well. VSS. S1, S2, RRR. Lungs CTA. A/P: Pt doing well from medical standpoint. Will signoff. Please reconsult if needed.
[2018-11-21] MEDS: Sodium Chloride 0.9% 1,000 ML IV SCH (05:38)
[2018-11-21] MEDS: Aspirin 81 mg Enteric Coated Tablet PO SCH (08:10)
[2018-11-21] MEDS: Multivitamin W/ Minerals 1 TAB PO SCH (08:10)
[2018-11-21] MEDS: Atenolol 25 MG TAB PO SCH (08:10)
[2018-11-21] MEDS: Ferrous Gluconate 324 MG TAB PO SCH (08:11)
[2018-11-21] MEDS: Hydrochlorothiazide 25 MG TAB PO SCH (08:11)
[2018-11-21] MEDS: Senokot S 8.6-50 MG TAB PO SCH (08:11)
[2018-11-21] MEDS: traMADol HCl 50 MG TAB PO PRN (11:02)
[2018-11-21 11:13] VITALS: TEMP 97.8
[2018-11-21 16:50] VITALS: BP 107/65
== END 2018-11-21 17:27 | DRG 467 ==
LOC: SURG A 11-18 06:01 → SJJU 11-18 12:40
PROVIDERS: ADMIT Orthopaedic Surgery; ATTEND Orthopaedic Surgery
PROC: 0SPD0JZ Removal of Synthetic Substitute from Left Knee Joint, Open Approach (ICD-10-PCS; principal; 2018-11-18)
PROC: 0SRD0J9 Replacement of Left Knee Joint with Synthetic Substitute, Cemented, Open Approach (ICD-10-PCS; 2018-11-18)
DX: T84.093A Other mechanical complication of internal left knee prosthesis, initial encounter (principal); E87.1 Hypo-osmolality and hyponatremia; I10 Essential (primary) hypertension; F41.9 Anxiety disorder, unspecified; Y83.8 Other surgical procedures as the cause of abnormal reaction of the patient, or of later complication, without mention of misadventure at the time of the procedure; Z88.8 Allergy status to other drugs, medicaments and biological substances; Z88.0 Allergy status to penicillin; Z90.710 Acquired absence of both cervix and uterus; Z90.49 Acquired absence of other specified parts of digestive tract; M17.11 Unilateral primary osteoarthritis, right knee
CPT/HCPCS: 36415; 80048; 85027; 90471; 90662; G0008; J1885; J1956; J2250; J2795; J3010; J3370; J3490; J7050

== ENCOUNTER 2018-12-11 08:42 | Inpatient (IN) | payer MEDICARE, OTHER ==
[2018-12-11] MEDS ORDERED: 1/2 NS w/KCL 20 mEq 1,000 ML IV SCH (11:45)
[2018-12-11 12:32] LABS: #Lymphocytes 1.3 thou/uL (1.20-3.40); #Neutrophils 9.4 thou/uL (1.40-6.50); %Basophils 0.3 % (0.0-1.0); %Eosinophils 0.2 % (0.0-10.0); %Lymphocytes 11.4 % (21.0-51.0); %Monocytes 8.2 % (0.0-10.0); %Neutrophils 79.9 % (42.0-75.0); Hemoglobin 12.7 g/dL (12.0-16.0); Mean Corpuscular Hemoglobin 30.1 pg (27.0-31.0); Mean Corpuscular Volume 91.4 fL (78.0-98.0); Mean Platelet Volume 8.6 fL (7.4-10.4); Platelet Count 229 thou/uL (130-400); RBC Distribution Width 12.3 % (11.5-14.5); Red Blood Cell (RBC) Count 4.21 mill/uL (4.20-5.40); White Blood Cell (WBC) Count 11.7 thou/uL (4.8-10.8)
[2018-12-11 12:50] LABS: Anion Gap 14 mmol/L (10-20); BUN (Urea Nitrogen) 13 mg/dL (9.8-20.1); Calc. Creatinine Clearance 0 mL/min (70-130); Calcium 8.7 mg/dL (7.8-10.44); Carbon Dioxide 27 mmol/L (23-31); Chloride 99 mmol/L (98-107); Estimated GFR-MDRD 56; Glucose 132 mg/dL (83-110); Potassium 3.9 mmol/L (3.5-5.1); Sodium 136 mmol/L (136-145)
[2018-12-11] MEDS ORDERED: Morphine 4 MG/ML VIAL SLOW IVP PRN (13:48)
[2018-12-11] MEDS ORDERED: Ketorolac Tromethamine 30 MG/ML VIAL IVP PRN (13:48)
[2018-12-11] MEDS ORDERED: Morphine 2 MG/ML SYRINGE SLOW IVP PRN (13:48)
[2018-12-11] MEDS ORDERED: Acetaminophen 1,000 MG in Premix Bag 1 BAG IVPB PRN (13:48)
--- NOTE | 2018-12-11 14:11 | RAD ---
XR Abdomen 2 View/1 View Cxr History: Small bowel obstruction. Comparison: Abdomen radiograph same day Findings: Enteric tube is in place with the side port at the GE junction. Lungs are relatively clear. No pneumothorax. Continued to be mildly distended loops of small bowel in the abdomen. Large volume stool in the rectal vault. Impression: 1. Enteric tube side port near the GE junction. Recommend advancing 3-4 similar. 2. Large moderate stool within the rectum. Disimpaction may be beneficial. 3. Continued mild gaseous dilatation of small bowel.
--- NOTE | 2018-12-11 14:44 | CON ---
DATE OF CONSULTATION: HISTORY OF PRESENT ILLNESS: Danita Rapp is an 88-year-old female, transferred from [place] because of nausea and vomiting. She had undergone on 04/27/2017, left knee replacement by Dr. Degroot and then on 11/18/2018, this was revised by Dr. Degroot and she has been at rehab convalescing. The patient is status post Dr. Carbajal, lumbar surgery. The patient began experiencing nausea and vomiting over the last 24 hours. She has never experienced this before. She has not had a bowel movement in 24 hours. Her physical therapy is interrupted by the symptoms. She reports she is having abdominal discomfort. Abdominal x-ray was single view was obtained in [place] and an NG tube placed and she was transferred to this facility. NG tube was at 50 cm and has a feculent appearing output about 400 or 500. The patient states she is not having much pain at this time. The patient has had a past total abdominal hysterectomy, bilateral salpingo-oophorectomy, appendectomy, and has had a colon resection for diverticulitis. She did not require colostomy. She describes a diverticular abscess, but did not require colostomy. She has had a colonoscopy in the last five or six years, she cannot remember when. ALLERGIES: PENICILLIN, CODEINE, AND LOSARTAN. SOCIAL HISTORY: Tobacco, none. Alcohol, rarely. HOME MEDICATIONS: 1. Tramadol. 2. Lorazepam. 3. Colace. 4. Atenolol. 5. Aspirin. PAST MEDICAL HISTORY: Hypertension. She has never had any cardiopulmonary problems. She has never had a reason to have cardiac stress test. REVIEW OF SYSTEMS: Ten-point noncontributory. PHYSICAL EXAMINATION: VITAL SIGNS: Blood pressure 120/72, respiratory rate 18, and heart rate 72. HEAD, EARS, EYES, NOSE, AND THROAT: Unremarkable. LUNGS: Clear to auscultation. CARDIAC: Regular rate and rhythm without murmur or gallop. ABDOMEN: Soft, nontympanitic, nondistended, and nontender. Midline scar consistent with colon resection. Right lower quadrant scar consistent with appendectomy. EXTREMITIES: Unremarkable. No ankle edema. LABORATORY DATA: White count 11 and hemoglobin 12.7. Sodium 136, potassium 3.9, BUN 13, and creatinine 0.94. ASSESSMENT AND PLAN: 1. Small bowel obstruction by history. She had a single view abdominal x-ray in [place]. We will repeat her abdominal x-rays today and we will repeat them tomorrow. We will obtain a small bowel followthrough tomorrow morning. We will make further decisions on clinical course and small bowel followthrough results. She has not had a CAT scan and I will not order that at this time. 2. Hypertension. 3. Status post left knee revision. 4. History of lumbar surgery. Job ID: [id number]
[2018-12-11] MEDS: 1/2 NS w/KCL 20 mEq 1,000 ML IV SCH ×2 (16:13→22:30)
--- NOTE | 2018-12-11 16:29 | HP ---
HISTORY OF PRESENT ILLNESS: Ms. Rapp is an 88-year-old woman. A few weeks ago, she underwent some surgery involving left knee. She went to rehab for physical therapy. For the last 2 days, she had been experiencing some nausea and vomiting along with diarrhea, and more recently since last night, she has been having bilious emesis. Evaluation was done and x-rays were consistent with small-bowel obstruction. She was transferred to this facility for management. PAST MEDICAL HISTORY: Remarkable for hypertension. She denies heart disease, lung disease, or liver disease. Denies diabetes. PAST SURGICAL HISTORY: Remarkable for left total knee replacement and more recently she had some ruptured ligament of the left knee, which required surgery. She also had previous hysterectomy, tonsillectomy, and appendectomy. ALLERGIES: SHE HAS ALLERGY TO PENICILLIN AND CODEINE. SOCIAL HISTORY: She denies any history of cigarette smoking. Denies EtOH abuse. Denies substance abuse. FAMILY HISTORY: Reviewed and is not contributory. MEDICATIONS: In the rehab, she was on; 1. Aspirin 81 mg daily. 2. Docusate sodium 100 mg b.i.d. 3. Atenolol 25 mg daily. 4. Protonix 40 mg daily. 5. Tylenol 500 mg q.6 p.r.n. 6. Lorazepam 0.5 mg q.6 p.r.n. 7. Zofran 4 mg q.6 p.r.n. 8. Simethicone 160 mg b.i.d. p.r.n. 9. Tramadol 50 mg q.6 p.r.n. REVIEW OF SYSTEMS: CONSTITUTIONAL: She denies any fever. Denies weakness. HEENT: No headache. No ocular pain. No sore throat. No rhinorrhea. No earache. No epistaxis. NECK: No neck pain. No neck stiffness. CARDIOVASCULAR: No shortness of breath. No chest pain. PULMONARY: No coughing. GASTROINTESTINAL: Admits to nausea, vomiting, and diarrhea as mentioned earlier. GENITOURINARY: No dysuria. No hematuria. ENDOCRINOLOGIC: No heat or cold intolerance. No polyuria, polydipsia, or polyphagia. MUSCULOSKELETAL: Admits to arthralgia on and off. HEMATOLOGIC: No abnormal bleeding. No ecchymosis. LYMPHATIC: No palpable lymphadenopathy. No painful lymphadenopathy. SKIN: No rash. No itching. ALLERGIC: No hay fever. NEUROLOGIC: No seizure. PSYCHIATRIC: Admits to anxiety. PHYSICAL EXAMINATION: GENERAL: At the current time, she is alert and oriented, in no distress. VITAL SIGNS: Her latest vital signs show a temperature of 98.1, pulse rate 93, respiratory rate 16, blood pressure 113/58. HEENT: Her head is normocephalic and atraumatic. Her pupils are equal and reacting. Ears and nose normal. Oral mucosa is moist. There is an NG tube in place. NECK: Supple. There is no distention of the jugular vein. No lymphadenopathy felt. Thyroid gland not palpable. There are no carotid bruits. CHEST: Symmetrical with regular S1 and S2. LUNGS: Clear. ABDOMEN: Soft. Bowel sounds not heard. We could not appreciate any organomegaly. EXTREMITIES: Limbs show no edema. NEUROLOGIC: She moves all extremities. LABORATORY DATA: CBC with differential and BMP are in progress. ASSESSMENT: This is an 88-year-old woman with history of hypertension, status post left knee surgery recently, who was in rehab and developed a small-bowel obstruction, for which she was transferred to this facility. The patient is currently n.p.o. She is started on IV fluid. General Surgery was consulted. Job ID: [id number]
[2018-12-11] MEDS ORDERED: Fleet Enema 133 ML BOT PR SCH (16:30)
[2018-12-11 18:48] VITALS: BMI 25.0
[2018-12-11] MEDS: Enoxaparin Sodium 40 MG/0.4 ML SYRINGE SC SCH (22:26)
[2018-12-12] MEDS ORDERED: Clopidogrel Bisulfate 75 MG TAB ONE (05:52)
[2018-12-12 06:02] LABS: #Basophils 0.1 thou/uL (0.0-0.2); #Monocytes 0.9 thou/uL (0.11-0.59); #Neutrophils 8.2 thou/uL (1.40-6.50); %Basophils 0.5 % (0.0-1.0); %Eosinophils 0.4 % (0.0-10.0); %Lymphocytes 18.1 % (21.0-51.0); %Monocytes 8.3 % (0.0-10.0); %Neutrophils 72.6 % (42.0-75.0); Mean Corpuscular HGB CONC 31.8 g/dL (32.0-36.0); Mean Corpuscular Hemoglobin 28.8 pg (27.0-31.0); Mean Corpuscular Volume 90.7 fL (78.0-98.0); Mean Platelet Volume 11.1 fL (7.4-10.4); Platelet Count 131 thou/uL (130-400); RBC Distribution Width 12.3 % (11.5-14.5); Red Blood Cell (RBC) Count 4.16 mill/uL (4.20-5.40); White Blood Cell (WBC) Count 11.3 thou/uL (4.8-10.8)
[2018-12-12 06:16] LABS: Anion Gap 11 mmol/L (10-20); BUN (Urea Nitrogen) 14 mg/dL (9.8-20.1); Calc. Creatinine Clearance 48 mL/min (70-130); Calcium 8.7 mg/dL (7.8-10.44); Carbon Dioxide 33 mmol/L (23-31); Chloride 97 mmol/L (98-107); Estimated GFR-MDRD 57; Glucose 107 mg/dL (83-110); Potassium 3.5 mmol/L (3.5-5.1); Sodium 137 mmol/L (136-145)
[2018-12-12] MEDS: Pantoprazole 40 MG VIAL IVP SCH (08:28)
[2018-12-12] MEDS: 1/2 NS w/KCL 20 mEq 1,000 ML IV SCH ×3 (09:19→20:25)
[2018-12-12] MEDS ORDERED: Ondansetron PF 4 MG/2 ML Vial IVP PRN (09:36)
--- NOTE | 2018-12-12 10:41 | RAD ---
EXAM: XR Abdomen 2 View PROVIDED CLINICAL HISTORY: Follow-up small bowel obstruction. COMPARISON: 12/11/2018. FINDINGS: Nasogastric tube remains in place. Proximal sidehole overlies the expected location of the gastric ca rdia, but the nasogastric tube has been advanced compared to prior study. Minimal atelectasis is present at the left lung base. The bowel gas pattern is overall nonspecific. Moderate amount of retai mono fecal material is again seen in the region of the rectum. Postsurgical changes lower abdomen/upper pelvis are again seen. Degenerative changes are again seen in the lumbar spine with rig ht convex curvature of the lumbar spine. Phleboliths overlie the pelvis. Vascular calcifications are again seen. IMPRESSION: 1. Nasogastric tube remains in place which has been advanced from the prior exam, and the most proxim al sidehole appears to overlie region of the gastric cardia. 2. Moderate amount retained fecal material again seen in the region of the rectum. 3. Mild gaseous distention of loops of small bowel, but the bowel gas pattern is overall nonspecific.
--- NOTE | 2018-12-12 11:47 | RAD ---
EXAM: XR Small Bowel STANDARD PROVIDED CLINICAL HISTORY: Small bowel obstruction. COMPARISON: Radiograph of the abdomen on 12/12/2018 as well as acute abdominal series on 12/11/2018. FINDINGS: Nasogastric tube is noted in place in the stomach. The loops of small bowel are normal in caliber. Th e approximate transit time of contrast through the small bowel is 30 minutes with contrast seen in the ascending colon and at the hepatic flexure on the 30 minute image. No dilated loops of small roel l are seen. Postsurgical changes of the lower abdomen/upper pelvis are again noted. Vascular calcifications are seen. IMPRESSION: No findings to suggest a small bowel obstruction. Loops of small bowel are normal in caliber with prem roximate transit time of contrast through the small bowel of 30 minutes with contrast seen to the level of the hepatic flexure on the 30 minute image.
[2018-12-12] MEDS ORDERED: MD-Gastroview 120 ML BOT ONE (12:00)
--- NOTE | 2018-12-12 12:04 | PDOC.HOSPP ---
- Subjective Encounter Date: 12/12/18 Encounter Time: 12:02 Subjective: i'm ready to go home - Objective Vital Signs & Weight: Vital Signs (12 hours) Temp Pulse Resp BP Pulse Ox 12/12/18 07:26 98.3 F 82 20 114/69 96 12/12/18 05:26 98.5 F 91 18 123/70 98 12/12/18 00:41 98.1 F 81 18 109/54 L 94 L Weight Weight 155 lb I&O: 12/11/18 12/12/18 12/13/18 06:59 06:59 06:59 Intake Total 1980 Output Total 1600 Balance 380 Result Diagrams: 12/12/18 05:48 12/12/18 05:48 Hospitalist ROS - Medication Medications: Active Medications Generic Name Dose Route Start Last Admin Trade Name Freq PRN Reason Stop Dose Admin Enoxaparin Sodium 40 mg 12/11/18 21:00 12/11/18 22:26 Lovenox SC 40 mg 2100 DORA Administration Potassium Chloride/Sodium Chloride 1,000 mls @ 125 mls/hr 12/11/18 13:49 05/27 09:19 1/2 Ns W/Kcl 20 Meq IV 1,000 mls .Q8H DORA Administration Ondansetron HCl 4 mg 12/12/18 09:36 12/12/18 09:59 Zofran IVP 4 mg Q6H PRN Administration Nausea/Vomiting Pantoprazole Sodium 40 mg 12/12/18 09:00 12/12/18 08:28 Protonix IVP 40 mg DAILY DORA Administration - Exam ENT - other findings: NG to suction Neck: no JVD Heart: irregular, murmur present, II/IV Respiratory: CTAB Gastrointestinal: soft, normal bowel sounds Extremities: no edema Hosp A/P (1) Nausea & vomiting Code(s): R11.2 - NAUSEA WITH VOMITING, UNSPECIFIED Status: Acute (2) Irregular cardiac rhythm Code(s): I49.9 - CARDIAC ARRHYTHMIA, UNSPECIFIED Status: Acute - Plan SBFT- no obstruction DC NG, feed EKG for arrythmia
[2018-12-12] MEDS ORDERED: Fleet Enema 133 ML BOT PR SCH (13:00)
--- NOTE | 2018-12-12 14:24 | PDOC.EVN ---
Event Note - Event Note Event Note: EKG- RSR with PACs, monimal ST abnormality. no further TUCKER
--- NOTE | 2018-12-12 15:05 | PRG ---
DATE OF SERVICE: 12/12/2018 SUBJECTIVE: Danita Rapp is doing well today. Her small-bowel follow-through was normal with Gastrografin transit into her colon within an hour. The patient fecal impaction again. The patient has had copious bowel movements. Abdomen was soft, nontender. Rectal exam reveals very tender anus. I do not feel a fecal impaction. ASSESSMENT AND PLAN: 1. Resolved bowel obstruction versus ileus. 2. Fecal impaction, probably has resolved. We will check another abdominal x-ray today. The patient could be discharged home at anytime. She should minimize narcotics and hopefully can avoid this problem again. At this point, I will see her as needed. Dr. Bach is covering if necessary. Job ID: [id number]
--- NOTE | 2018-12-12 15:15 | RAD ---
Exam: KUB: HISTORY: Check resolution of fecal impaction follow-up small bowel series with concern for obstruction KUB dated 2:16 PM 12/12/2018, following a small bowel series done earlier today there is is performed. There is a small amount of residual contrast within nondilated small bowel. Contrast is noted throughout the colon. There is still some persistent solid fecal material in a dilated rectum. IMPRESSION: Contrast media progressed mostly through the small bowel and into the colon. Persistent solid fecal m aterial within a dilated rectum.
[2018-12-12] MEDS ORDERED: Lorazepam 0.5 MG TAB PO PRN (15:24)
--- NOTE | 2018-12-12 16:33 | EKG ---
Test Reason : Blood Pressure : / mmHG Vent. Rate : 101 BPM Atrial Rate : 101 BPM P-R Int : 134 ms QRS Dur : 086 ms QT Int : 370 ms P-R-T Axes : -07 -14 006 degrees QTc Int : 479 ms Sinus tachycardia with Premature atrial complexes Minimal voltage criteria for LVH, may be normal variant Nonspecific ST abnormality Abnormal ECG When compared with ECG of 09-NOV-2018 14:42, Premature atrial complexes are now Present Nonspecific T wave abnormality now evident in Inferior leads Confirmed by DR. Paco PARISH ([id number]) on 12/12/2018 4:32:47 PM Referred By: JULIETTE Confirmed By:DR. Paco PARISH
[2018-12-12] MEDS: Aspirin 81 mg Enteric Coated Tablet PO SCH (20:24)
[2018-12-12] MEDS: Enoxaparin Sodium 40 MG/0.4 ML SYRINGE SC SCH (20:24)
[2018-12-12] MEDS: Polyethylene Glycol 3350 17 GM Packet PO SCH (20:25)
[2018-12-12] MEDS: Docusate 100 MG CAP PO SCH (20:25)
[2018-12-13] MEDS: 1/2 NS w/KCL 20 mEq 1,000 ML IV SCH ×2 (06:45→15:07)
[2018-12-13] MEDS ORDERED: Atenolol 25 MG TAB PO SCH (09:00)
[2018-12-13] MEDS: Polyethylene Glycol 3350 17 GM Packet PO SCH (09:04)
[2018-12-13] MEDS: Docusate 100 MG CAP PO SCH (09:04)
[2018-12-13] MEDS: Pantoprazole 40 MG VIAL IVP SCH (09:05)
[2018-12-13] MEDS: Aspirin 81 mg Enteric Coated Tablet PO SCH (09:05)
[2018-12-13 11:58] VITALS: BP 112/72; TEMP 98.2
--- NOTE | 2018-12-13 16:35 | DIS ---
DATE OF ADMISSION: 12/11/2018 DATE OF DISCHARGE: 12/13/2018 PRIMARY CARE PHYSICIAN: Yvonne Velasquez MD DISPOSITION: Discharged back to [facility] under the care of Dr. Beltrán. FINAL DIAGNOSES: 1. Nausea and vomiting, resolved. 2. Rectal impaction, resolved. 3. Hypertension. 4. Elevated white count. 5. Status post left knee surgery. DISCHARGE MEDICATIONS: 1. Tramadol 50 to 100 mg q.6 hours p.r.n. 2. Lorazepam 0.5 mg q.6 hours p.r.n. 3. Atenolol 25 mg daily. 4. Aspirin 81 mg p.o. b.i.d. ALLERGIES: PENICILLIN, LOVASTATIN, SIMVASTATIN, BUPROPION, CODEINE, FLUOXETINE, MIRTAZAPINE. DIET: Heart healthy. PENDING AT TIME OF DISCHARGE: Nothing. HOSPITAL COURSE: The patient transferred from [facility] direct admit to [facility] for small-bowel obstruction. General Surgery was consulted, Dr. Damon Montiel. Two view abdomen was obtained. One view abdomen had been obtained at [place] [facility]. Done here white cell count 11.7, hemoglobin 12.7, platelet count 229,000. Basic metabolic profile unremarkable. Blood sugar 132. Acute abdominal series done 12/11/2018 revealed an NG tube, large stool in the rectum, mild gaseous dilatation of small bowel. A small bowel follow-through was done with no findings of small-bowel obstruction. The patient underwent digital disimpaction. She is eating well. Vital signs are stable. Abdomen is benign. She is being transferred back to [facility] for continuing care. Physical Therapy and Occupational Therapy for her knee surgery. I have had a handoff conversation with Dr. Socrates Torres. FOLLOWUP: Followup at [facility] Bed per Dr. Beltrán/Dr. Torres. No procedures were done. Job ID: [id number]
== END 2018-12-13 15:43 | disposition swing bed (61) | DRG 390 ==
LOC: T4-B 09:54
PROVIDERS: ADMIT Internal Medicine; ATTEND Internal Medicine
DX: K56.49 Other impaction of intestine (principal); R11.2 Nausea with vomiting, unspecified; I10 Essential (primary) hypertension; D72.829 Elevated white blood cell count, unspecified; I49.9 Cardiac arrhythmia, unspecified; Z88.6 Allergy status to analgesic agent; Z88.0 Allergy status to penicillin; Z88.8 Allergy status to other drugs, medicaments and biological substances; Z90.710 Acquired absence of both cervix and uterus
CPT/HCPCS: 36415; 74018; 74019; 74022; 74250; 80048; 85025; 93005; 93010; C9113; J1650; J2405; J3480; Q9963